=== PATIENT | male | born 1980 | race Two or more races ===

== ENCOUNTER 2019-07-29 10:17 | Emergency (ER) | payer SELFPAY ==
[~2019-07-29] VITALS: Ht 157.5 cm; Wt 75.2 kg
--- NOTE | 2019-07-29 10:47 | NUR ---
PT PRESENTS TO ED WITH 6-7 DAYS OF SOB, NOW WITH SOME ANXIETY. PT DENIES CP OR OTHER PAIN. NO EDEMA NOTED. PT REPORTS 3 CIGARETTES/DAY. 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 REPORT TO DANI ESCOBAR.
[2019-07-29 11:01] LABS: MEAN CORPUSCULAR HEMOGLOBIN 34.3 pg (27.5-34.5); MEAN CORPUSCULAR HGB CONC 34.1 g/dL (33.2-36.2); MEAN CORPUSCULAR VOLUME 100.7 fL (81-97); MEAN PLATELET VOLUME 9.2 fL (7.4-10.4); PLATELET COUNT 186 x10^3/uL (130-400); RED BLOOD COUNT 4.73 x10^6/uL (4.38-5.82); RED CELL DISTRIBUTION WIDTH 12.4 % (9.4-14.8)
[2019-07-29 11:10] LABS: ALBUMIN 3.8 g/dL (3.4-5.0); ANION GAP 7 mmol/L (5-15); CALCIUM 8.6 mg/dL (8.5-10.1); CHLORIDE 106 mmol/L (98-107)
[2019-07-29 11:15] LABS: CREATININE 0.94 mg/dL (0.7-1.3); TROPONIN I < 0.015 ng/mL (0.000-0.045)
[2019-07-29 11:22] LABS: MD YES
[2019-07-29 11:26] LABS: EOS#(MANUAL) 0.08 x10^3/uL (0.0-0.4); EOS% (MANUAL) 3 % (1-7); LYMPH#(MANUAL) 1.06 x10^3/uL (1-3.4); LYMPHS% (MANUAL) 38 % (22-44); MONOS#(MANUAL) 0.25 x10^3/uL (0.3-2.7); MONOS% (MANUAL) 9 % (2-9); REACTIVE LYMPHS # (MANUAL) 0.28 x10^3/uL (0-0); REACTIVE LYMPHS % (MANUAL) 10 % (0-0); SEG#(MANUAL) 1.12 x10^3/uL (1.8-6.8); SEGS% (MANUAL) 40 % (42-75)
[2019-07-29 11:27] LABS: <PLATELET ESTIMATE> ADEQUATE; <PLT MORPHOLOGY> NORMAL PLT MORPH; <RBC MORPHOLOGY> NORMAL
[2019-07-29 11:55] VITALS: BP 117/71
--- NOTE | 2019-07-29 11:56 | NUR ---
DC DISCUSSION WITH PT VIA CO OP NETO COTTRELL [id number]. NO FURTHER NEEDS OR QUESTIONS PRESENTED BY PT.
== END 2019-07-29 12:03 | disposition home or self-care (01) ==
LOC: ED 11:40
DX: R06.00 Dyspnea, unspecified (principal); F17.200 Nicotine dependence, unspecified, uncomplicated
CPT/HCPCS: 36415; 71046; 80048; 82040; 84484; 85025; 93005; 99284